=== PATIENT | female | born 1985 | race Caucasian/White ===

== ENCOUNTER 2022-04-26 23:37 | Inpatient (IN) | payer BC ==
[~2022-04-26] VITALS: Ht 175.3 cm; Wt 81.6 kg
[2022-04-26] MEDS ORDERED: OXYTOCIN 20 UNITS in LACTATED RINGERS 1,000 ML IV STA (23:38)
--- NOTE | 2022-04-26 23:38 | NUR ---
PT BIBA ALS TO ER BED 10
[2022-04-26] MEDS ORDERED: OXYTOCIN 10 UNITS/ML VIAL ONE (23:39)
[2022-04-26] MEDS ORDERED: CARBOPROST 250 MCG/ML AMP IM ONE (23:40)
[2022-04-26] MEDS ORDERED: METHYLERGONOVINE 0.2 MG/ML AMP IM ONE (23:40)
[2022-04-26 23:45] VITALS: BP 113/93
[2022-04-26] MEDS ORDERED: MISOPROSTOL 200 MCG TAB PO ONE (23:45)
[2022-04-26 23:50] LABS: HEMATOCRIT 26.2 % (36-48); HEMOGLOBIN 8.5 g/dL (12.0-16.0); LYMPHOCYTES # (AUTO) 2.3 K/uL (2.5-16.5); LYMPHOCYTES % (AUTO) 8.3 % (20.5-51.1); MEAN CORPUSCULAR HEMOGLOBIN 30 pg (27-31); MEAN CORPUSCULAR HGB CONC 33 g/dL (33-37); MEAN CORPUSCULAR VOLUME 92.7 fL (80-94); MONOCYTES # (AUTO) 0.8 K/uL (0.8-1.0); NEUTROPHILS # (AUTO) 24.8 K/uL (1.8-7.7); NEUTROPHILS % (AUTO) 88.7 % (42.2-75.2); PLATELET COUNT (AUTO) 204 K/uL (140-450); RED BLOOD CELL COUNT(AUTO) 2.83 MIL/uL (4.20-5.40); RED CELL DISTRIBUTION WIDTH 14.1 % (11.6-13.7)
[2022-04-26] MEDS ORDERED: MISOPROSTOL 100 MCG TAB ONE (23:54)
[2022-04-27] MEDS ORDERED: ACETAMINOPHEN EXTRA STRENGTH 500 MG TAB PO ONE
[2022-04-27] MEDS ORDERED: IBUPROFEN 600 MG TAB PO ONE
[2022-04-27] MEDS ORDERED: fentaNYL citrate 0.05 MG/ML VIAL IVP ONE
[2022-04-27 00:06] LABS: ALBUMIN 1.9 g/dL (3.4-5.0); ANION GAP 13.3 (8-16); CARBON DIOXIDE 21.7 mmol/L (21-32); CREATININE 1.2 mg/dL (0.6-1.3); TOTAL BILIRUBIN 0.3 mg/dL (0.0-1.0)
[2022-04-27 00:07] LABS: PROTHROMBIN TIME 9.3 secs (10.8-13.4)
--- NOTE | 2022-04-27 00:15 | NUR ---
ULTRASOUND AT BEDSIDE
--- NOTE | 2022-04-27 00:22 | NUR ---
US IN PROGRESS
[2022-04-27] MEDS ORDERED: ONDANSETRON 4 MG/2 ML VIAL ONE ×2 (00:48→19:16)
[2022-04-27 01:30] VITALS: BP 90/59
--- NOTE | 2022-04-27 02:07 | NUR ---
REPORT CALLED TO JASSON DENNEY
[2022-04-27] MEDS ORDERED: SODIUM PHOSPHATE 118 ML ENEM RC PRN (03:15)
[2022-04-27] MEDS ORDERED: HYDROcodone/APAP 5/325 MG 1 TAB TAB PO PRN ×2 (03:15)
[2022-04-27] MEDS ORDERED: oxyCODONE/APAP 5/325 MG 1 TAB TAB PO PRN ×2 (03:15)
[2022-04-27] MEDS ORDERED: OXYTOCIN 20 UNITS in LACTATED RINGERS 1,000 ML IV SCH (03:15)
[2022-04-27] MEDS ORDERED: MEASLES, MUMPS, AND RUBELLA 1 VIAL SQVAC ONE (03:15)
[2022-04-27] MEDS ORDERED: bisacodyL 10 MG SUPP RC PRN (03:15)
[2022-04-27] MEDS ORDERED: BENZOCAINE/MENTHOL 20%-0.5% 60 GM CAN TP PRN (03:15)
[2022-04-27] MEDS ORDERED: TEMAZEPAM 15 MG CAP PO PRN ×2 (03:15)
[2022-04-27] MEDS ORDERED: METHYLERGONOVINE 0.2 MG TAB PO ONE (04:15)
[2022-04-27] MEDS ORDERED: MISOPROSTOL 200 MCG TAB ONE (04:16)
[2022-04-27] MEDS: METHYLERGONOVINE 0.2 MG TAB PO SCH ×4 (04:19→16:55)
[2022-04-27] MEDS: MISOPROSTOL 200 MCG TAB PO SCH ×4 (04:21→16:54)
[2022-04-27] MEDS: IBUPROFEN 800 MG TAB PO PRN ×2 (04:38→09:54)
[2022-04-27] MEDS ORDERED: OXYTOCIN 20 UNITS/LR PREMIX 1,000 ML IV ONE (05:16)
[2022-04-27] MEDS: HYDROcodone/APAP 5/325 MG 1 TAB TAB PO PRN ×2 (05:26→14:54)
--- NOTE | 2022-04-27 13:17 | NUR ---
PATIENT HAS BEEN SCREENED AND CATEGORIZED LOW NUTRITION RISK. PATIENT WILL BE SEEN WITHIN 7 DAYS OF ADMISSION. 05/03/[address]
[2022-04-27] MEDS ORDERED: ceFAZolin 2,000 MG VIAL ONE (18:12)
[2022-04-27] MEDS ORDERED: ceFAZolin Sod. 2,000 MG in DEXTROSE 5% 100 ML IV SCH (18:15)
[2022-04-27] MEDS ORDERED: DESFLURANE 240 ML BTL INH ONE (19:04)
[2022-04-27] MEDS ORDERED: fentaNYL citrate 0.05 MG/ML VIAL ONE (19:04)
[2022-04-27] MEDS ORDERED: PROPOFOL 200 MG/20 ML VIAL IV ONE (19:16)
[2022-04-27] MEDS ORDERED: DEXAMETHASONE 4 MG/ML VIAL ONE (19:16)
[2022-04-27] MEDS ORDERED: KETOROLAC 30 MG/ML VIAL ONE (19:16)
[2022-04-27] MEDS ORDERED: METHYLERGONOVINE 0.2 MG/ML AMP ONE (19:43)
[2022-04-27] MEDS ORDERED: ACETAMINOPHEN 100 ML IV PRN (20:00)
[2022-04-27] MEDS ORDERED: KETOROLAC 30 MG/ML VIAL IVP SCH (20:30)
[2022-04-27] MEDS ORDERED: DOCUSATE SOD/SENNA 50/8.6 MG 1 TAB PO SCH (21:00)
[2022-04-27] MEDS ORDERED: bisacodyL 5 MG TABEC PO SCH (21:00)
[2022-04-27] MEDS ORDERED: SENNA 8.6 MG TAB PO SCH (21:00)
[2022-04-28] MEDS ORDERED: DOCUSATE SOD/SENNA 50/8.6 MG 1 TAB PO SCH (21:00)
== END 2022-04-27 22:08 | disposition home or self-care (01) | DRG 769 ==
LOC: MED 23:37 → MMU 04-27 01:26 → MFCC 04-27 01:53
PROVIDERS: ADMIT Obstetrics & Gynecology; ATTEND Obstetrics & Gynecology
PROC: 0KQM0ZZ Repair Perineum Muscle, Open Approach (ICD-10-PCS; 2022-04-27)
PROC: 30233N1 Transfusion of Nonautologous Red Blood Cells into Peripheral Vein, Percutaneous Approach (ICD-10-PCS; 2022-04-27)
PROC: 10D17ZZ Extraction of Products of Conception, Retained, Via Natural or Artificial Opening (ICD-10-PCS; principal; 2022-04-27 18:30)
DX: O72.2 Delayed and secondary postpartum hemorrhage (principal); D62 Acute posthemorrhagic anemia; O70.1 Second degree perineal laceration during delivery; O90.81 Anemia of the puerperium; Z20.822 Contact with and (suspected) exposure to COVID-19; E86.1 Hypovolemia; O99.285 Endocrine, nutritional and metabolic diseases complicating the puerperium
CPT/HCPCS: 36415; 36430; 76856; 80053; 85025; 85610; 85730; 86886; 86900; 86901; 86920; 96372; 96374; 99291; J1100; J1885; J2210; J2405; J2590; J2704; J3010; J3490; J7060; J7120; P9016; Q0092